=== PATIENT | male | born 1995 | race Caucasian/White ===

== ENCOUNTER → 2017-04-26 | Outpatient (CLI) | payer BC ==
--- NOTE | 2017-04-26 12:48 | RADIOLOGY REPORT PS360 ---
ANKLE-RT-3 VIEWS COMPARISON: Right ankle 09/03/2014 HISTORY: Pain after right ankle sprain TECHNIQUE: AP lateral and oblique views FINDINGS: There is mild diffuse soft tissue swelling of the ankle more prominently laterally area the medial and lateral malleolus appear intact with no fracture seen and the ankle mortise is normal. IMPRESSION: Mild soft tissue injury, right ankle negative for fracture
== END ==
LOC: RAD 11:56
DX: S93.401A Sprain of unspecified ligament of right ankle, initial encounter (principal)